=== PATIENT | male | born 1970 | race Caucasian/White ===

== ENCOUNTER 2017-06-22 01:44 | Observation (INO) | payer BC, SELFPAY ==
[2017-06-22] VITALS (15 sets, daily range): BP systolic 121–171; BP diastolic 74–96; PULSE 49–86; RESP 12–20; TEMP 36.4–36.9; O2SAT 94–98; BMI 30.7; BMI 31.8
--- NOTE | 2017-06-22 01:55 | RAD_ITS ---
STUDY: X-RAY CHEST REASON FOR EXAM: Male, 46 years old. Chest pain shortness of breath TECHNIQUE: Single AP portable view of the chest. COMPARISON: July 13, 2015 FINDINGS: The lungs are clear and expanded. There is no demonstrated pleural abnormality. Normal size heart. Normal mediastinum and sajan. Normal visualized pulmonary arteries. Normal visualized aortic arch and descending thoracic aorta. Normal visualized thoracic spine. Normal visualized ribs, clavicles, and shoulders. There is no demonstrated abnormality of the visualized soft tissue structures of the upper abdomen. RAD/Chest 1 View (Portable) IMPRESSION: Normal x-ray examination of the chest. Electronically Signed: Shayne Rolle MD at 2:39 EST Tel , Service support ,
--- NOTE | 2017-06-22 01:55 | EKG12_ITS ---
Test Reason : CP Blood Pressure : / mmHG Vent. Rate : 064 BPM Atrial Rate : 064 BPM P-R Int : 164 ms QRS Dur : 114 ms QT Int : 396 ms P-R-T Axes : 062 038 018 degrees QTc Int : 408 ms Normal sinus rhythm with sinus arrhythmia Normal ECG Confirmed by KERVIN HINDS, JEN ([id number]), makeup editor EFREM HA ([id number]) on 06/26/2017 2:29:16 PM Referred By: KELIN Confirmed By:JEN GALEANA MD
[2017-06-22 02:02] LABS: Absolute Lymphocyte Count 2.78 X10^3/ul (0.83-4.51); Basophil# 0.03 X10^3/uL; Basophil% 0.3 % (0-1); Eosinophil# 0.31 X10^3/uL; Eosinophils% 3.5 % (0-5); Hematocrit 50.6 % (40-54); Hemoglobin 17.8 g/dl (13.0-16.5); Lymphocyte # 2.78 X10^3/ul (4.0); Lymphocyte % 31.4 % (19-41); Mean Corp Hgb Conc 35.2 g/gl (32-36); Mean Corpuscular Hgb 30.5 pg (27.0-32.0); Mean Corpuscular Volume 86.6 fL (80-94); Mean Platelet Vol. 9.1 fl (6.2-12.0); Monocyte# 0.72 X10^3/uL; Monocyte% 8.1 % (0-10); Neutrophil # 4.98 X10^3/uL (2.7-7.7); Neutrophil % 56.2 % (47-70); POSITIVE COUNT NO; POSITIVE DIFFERENTIAL NO; POSITIVE MORPHOLOGY NO; Platelet Count 229 K/mm3 (150-450); RBC Distribution Width CV 12.5 % (11.6-14.6); RBC Distribution Width SD 39.5 fl (35.1-43.9); Red Blood Count 5.84 M/mm3 (4.6-6.2); White Blood Count 8.9 K/mm3 (4.4-11.0)
[2017-06-22] MEDS: 0.9% Normal Saline 1,000 ML 150 ML IV (02:02)
[2017-06-22] MEDS: Aspirin 81 MG TAB.CHEW 324 MG PO (02:02)
--- NOTE | 2017-06-22 02:20 | NURSING ---
DR. NEVILLE MADE AWARE THAT PATIENT'S CHEST PRESSURE LEVEL STAYED AT A 2/10 AFTER [address] NEVILLE ORDERED MORPHINE, BUT PATIENT REFUSED AT THIS TIME.
[2017-06-22 02:22] LABS: Anion Gap 7 (5-15); BUN 16 mg/dL (7-18); BUN/Creat Ratio 13.6 RATIO (10-20); Calcium,Total 8.5 mg/dL (8.5-10.1); Chloride 104 mmol/L (98-107); Creatinine, Serum 1.18 mg/dL (0.70-1.30); EST Glomerular Filtration Rate 71 mL/min (>60); Est Glom Filt Rate - Afr Amer 85 mL/min (>60); Estimated Creatinine Clearance 70.59 ml/min; Glucose 95 mg/dL (74-106); Potassium 3.8 mmol/L (3.5-5.1); Sodium Level 140 mmol/L (136-145)
--- NOTE | 2017-06-22 02:26 | ED.VISSUMM ---
- ER Visit Summary Date of Service: 06/22/17 Chief Complaint: Chest pain History of Present Illness: The patient is a [address] Lima. He reports that he has chest pain again 2-3 days ago. This is an intermittent pain that comes on when he exerts himself. He describes it as a tightness on the right side of his chest. 7 out of 10 at worst and 4-10 currently. States pain is relieved with rest, but this takes hours. He denies any associated nausea or vomiting. Does report the pain makes him short of breath and diaphoretic. It also makes him lightheaded at times. Finally he states that he is fatigued. Physical Examination: Vitals: Stable. Afebrile. General: Well-nourished and well-developed. Head: Normocephalic atraumatic. Neck: Supple, no lymphadenopathy. No JVD. Nontender. Cardiovascular: Regular rate and rhythm. No murmurs. Respiratory: No respiratory distress. Clear to auscultation bilaterally. Abdominal: Soft, nontender, nondistended, normal bowel sounds. No guarding, rebound, or peritoneal signs. Back: Nontender. Extremities: Nontender, no edema. Skin: Normal color, no rash. Neurologic: Alert and oriented ?3. Cranial nerves II through XII are intact. Normal strength and sensation. Psych: Normal affect. Test Results: EKG is sinus at [address] changes. Is unchanged from 2004. Troponin is negative. Chem-7 is normal. CBC is marked for hemoglobin of 17.8. Chest x-ray is normal. Emergency Department Course and Treatment: Patient was treated with aspirin. He was given sublingual nitro with no change in his pain. He refused morphine. Treatment Plan: The patient's history is concerning for a cardiac etiology. He was discussed with Dr. Jennings for. He will be admitted to the hospital for further relation and treatment. Disposition: Admitted in stable condition. Impression: 1. Chest pain. 2. REYNA score of 0. This note was generated with [employer] dictation software. It may contain incorrect words, spelling, and punctuation that were not noted in review of the chart prior to signing ED Disposition - Plan for ED Patient: Chief Complaint: Chest Pain Referrals: Sarah Lima DO [Primary Care Provider] -
--- NOTE | 2017-06-22 03:13 | PCM.HP.STD ---
History of Present Illness Date of Admission: 06/22/17 Chief Complaint: Chest pain. The patient is a 46 year old M with no significant past medical history presented to the emergency room because of chest pain. His symptoms started 2 days ago with intermittent chest pain, described as chest tightness, 4-7 out of 10 in severity, not radiating, comes on with activity, relieved by rest and associated with mild shortness of breath. He reported occasional sweating and dizziness. He denies syncope or presyncope. Denied palpitation, nausea or vomiting. He denied a history of premature CAD. In the emergency room, his vital signs were stable. His routine blood work was unremarkable. EKG revealed normal sinus rhythm, normal CO interval, normal QRS and no evidence of acute ischemic changes. Chest x-ray showed no acute findings. He is being admitted for chest pain for evaluation. Past Medical History Allergies No Known Allergies Allergy (Verified 06/22/17 01:47) Home Medications: Ambulatory Orders Medication Instructions Recorded Multivitamins,Therapeutic 1 tablet PO DAILY 06/22/17 [Multivitamin] Surgical History: noncontributory Psychiatric History: No pertinent psych hx Lives: Spouse/ Significant Other Smoking Status: Never smoker Alcohol: None Drugs: None - *Family History Maternal History Items: Heart Disease Paternal History Items: Hypertension Review of Systems Constitutional: Denies: Anorexia, Chills, Fever, Weakness Eyes: Denies: Blurred vision, Double vision, Drainage, Redness HEENT: Denies: Difficulty Hearing, Ear Pain, Eye Pain, Nasal Congestion, Sore Throat Cardiovascular: Reports: Chest Pain, Chest Tightness, Light Headedness. Denies: Heaviness, Orthopnea, Palpitations, Syncope Respiratory: Reports: Shortness of breath upon exertion. Denies: Cough, Pleuritic Pain, Sputum production, Wheezing Gastrointestinal: Denies: Abdominal Pain, Constipation, Diarrhea, Nausea, Vomiting Genitourinary: Denies: Dysuria, Frequency, Hematuria Musculoskeletal: Denies: Arm Pain, Back Pain, Foot Pain Skin: Denies: Dryness, Rash Neurological: Denies: Balance problems, Double vision, Change in Speech, Slurred speech, Confusion, Focal weakness, Headaches, Incoordination, Numbness Psychiatric: Denies: Anxiety, Depression Endocrine: Denies: Change in Body Habitus, Polydipsia VTE Information - Inpt Only VTE Present on Admission: No VTE Mechan Device Prophylaxis: None VTE Pharm Prophylaxis ordered?: No - Physical Exam General: Alert, Oriented x3, Cooperative, No apparent distress HEENT: Atraumatic, PERRLA, EOMI Oral: Moist Mucosa, No Gingival or Mucosal Lesions/ Ulcerations Neck: Supple, No JVD, Negative Carotid Bruits, Trachea Midline, Thyroid Normal Size and Texture Lungs: Clear to auscultation, Normal air movement, No rhonchi, No wheeze, No rales Cardiovascular: Regular rate, Regular Rhythm, Normal S1, Normal S2, No murmurs Abdomen: Bowel Sounds Present, Soft, Non Tender, Non-Distended, No Hepato-splenomegaly Extremities: No clubbing, No cyanosis, No edema Skin: No rashes, No breakdown Lymphatic: No Cervical, Supraclavicular, or Inguinal Adenopathy Neurological: Cranial nerves II-XII grossly intact, Motor Exam 5/5 strength throughout Psych/Mental Status: Normal Affect, Appropriate, Alert and oriented to time, place, person, mood and affect Vital Signs Temp Pulse Resp BP Pulse Ox 98.5 F 55 L 16 136/91 H 94 06/22/17 01:44 06/22/17 03:08 06/22/17 03:08 06/22/17 03:08 06/22/17 03:08 Oxygen Flow Rate (L/min) 2 Oxygen Delivery Method Nasal Cannula Laboratory Tests 06/22/17 06/22/17 Range/Units 01:55 01:55 WBC 8.9 (4.4-11.0) K/mm3 RBC 5.84 (4.6-6.2) M/mm3 Hgb 17.8 H (13.0-16.5) g/dl Hct 50.6 (40-54) % MCV 86.6 (80-94) fL MCH 30.5 (27.0-32.0) pg MCHC 35.2 (32-36) g/gl RDW 12.5 (11.6-14.6) % RDW Differential 39.5 (35.1-43.9) fl Plt Count 229 (150-450) K/mm3 MPV 9.1 (6.2-12.0) fl Immature Gran % (Auto) 0.500 (0.0-0.9) % Neut % (Auto) 56.2 (47-70) % Lymph % (Auto) 31.4 (19-41) % [place] % (Auto) 8.1 (0-10) % Eos % (Auto) 3.5 (0-5) % Baso % (Auto) 0.3 (0-1) % Absolute Neuts (auto) 5.0 (2.0-7.7) X10^3/uL Absolute Lymphs (auto) 2.78 (0.83-4.51) X10^3/ul Total Counted Not Reportable Sodium 140 (136-145) mmol/L Potassium 3.8 (3.5-5.1) mmol/L Chloride 104 (98-107) mmol/L Carbon Dioxide 29.0 (21.0-32.0) mmol/L Anion Gap 7 (5-15) BUN 16 (7-18) mg/dL Creatinine 1.18 (0.70-1.30) mg/dL Estim Creat Clear Calc 70.59 ml/min Est GFR (MDRD) Af Amer 85 (>60) mL/min Est GFR (MDRD) Non-Af 71 (>60) mL/min BUN/Creatinine Ratio 13.6 (10-20) RATIO Glucose 95 (74-106) mg/dL Calcium 8.5 (8.5-10.1) mg/dL Troponin I < 0.02 (<0.06) ng/mL Clinical Impression(s) from Imaging Studies Chest X-Ray 06/22/17 01:55 IMPRESSION: Normal x-ray examination of the chest. Electronically Signed: Shayne Rolle MD at 2:39 EST Tel , Service support , Assessment/Plan This is a 46 years old male patient presented to the emergency room because of chest pain and he is being admitted for evaluation. #1 chest pain: Seems to be atypical. Patient denied family history of CAD. His mother had a history of CAD but at older age. His REYNA score is 0. EKG reviewed, no acute ischemic changes. First troponin is negative. Chest x-ray showed no acute findings. Vital signs are stable. Plan: Admit to PCU for observation, cardiac monitoring, serial cardiac enzymes, repeat EKG tomorrow morning, fasting lipid profile, start baby aspirin, sublingual nitroglycerin as needed, IV fluids, IV antiemetics, stress test tomorrow morning if cardiac enzymes are negative. #2 DVT prophylaxis: Low risk patient, no prophylaxis indicated. This note was generated with [employer] software. It may contain incorrect words, spelling, and punctuation that were not noted in checking the note before signing. Code Visit OBSV E&M: 13778 Initial observation care L3
--- NOTE | 2017-06-22 03:20 | HP.PCM_ITS ---
History of Present Illness Date of Admission: 06/22/17 Chief Complaint: Chest pain. The patient is a 46 year old M with no significant past medical history presented to the emergency room because of chest pain. His symptoms started 2 days ago with intermittent chest pain, described as chest tightness, 4-7 out of 10 in severity, not radiating, comes on with activity, relieved by rest and associated with mild shortness of breath. He reported occasional sweating and dizziness. He denies syncope or presyncope. Denied palpitation, nausea or vomiting. He denied a history of premature CAD. In the emergency room, his vital signs were stable. His routine blood work was unremarkable. EKG revealed normal sinus rhythm, normal HI interval, normal QRS and no evidence of acute ischemic changes. Chest x-ray showed no acute findings. He is being admitted for chest pain for evaluation. Past Medical History Allergies No Known Allergies Allergy (Verified 06/22/17 01:47) Home Medications: Ambulatory Orders Medication Instructions Recorded Multivitamins,Therapeutic 1 tablet PO DAILY 06/22/17 [Multivitamin] Surgical History: noncontributory Psychiatric History: No pertinent psych hx Lives: Spouse/ Significant Other Smoking Status: Never smoker Alcohol: None Drugs: None - *Family History Maternal History Items: Heart Disease Paternal History Items: Hypertension Review of Systems Constitutional: Denies: Anorexia, Chills, Fever, Weakness Eyes: Denies: Blurred vision, Double vision, Drainage, Redness HEENT: Denies: Difficulty Hearing, Ear Pain, Eye Pain, Nasal Congestion, Sore Throat Cardiovascular: Reports: Chest Pain, Chest Tightness, Light Headedness. Denies : Heaviness, Orthopnea, Palpitations, Syncope Respiratory: Reports: Shortness of breath upon exertion. Denies: Cough, Pleuritic Pain, Sputum production, Wheezing Gastrointestinal: Denies: Abdominal Pain, Constipation, Diarrhea, Nausea, Vomiting Genitourinary: Denies: Dysuria, Frequency, Hematuria Musculoskeletal: Denies: Arm Pain, Back Pain, Foot Pain Skin: Denies: Dryness, Rash Neurological: Denies: Balance problems, Double vision, Change in Speech, Slurred speech, Confusion, Focal weakness, Headaches, Incoordination, Numbness Psychiatric: Denies: Anxiety, Depression Endocrine: Denies: Change in Body Habitus, Polydipsia VTE Information - Inpt Only VTE Present on Admission: No VTE Mechan Device Prophylaxis: None VTE Pharm Prophylaxis ordered?: No - Physical Exam General: Alert, Oriented x3, Cooperative, No apparent distress HEENT: Atraumatic, PERRLA, EOMI Oral: Moist Mucosa, No Gingival or Mucosal Lesions/ Ulcerations Neck: Supple, No JVD, Negative Carotid Bruits, Trachea Midline, Thyroid Normal Size and Texture Lungs: Clear to auscultation, Normal air movement, No rhonchi, No wheeze, No rales Cardiovascular: Regular rate, Regular Rhythm, Normal S1, Normal S2, No murmurs Abdomen: Bowel Sounds Present, Soft, Non Tender, Non-Distended, No Hepato- splenomegaly Extremities: No clubbing, No cyanosis, No edema Skin: No rashes, No breakdown Lymphatic: No Cervical, Supraclavicular, or Inguinal Adenopathy Neurological: Cranial nerves II-XII grossly intact, Motor Exam 5/5 strength throughout Psych/Mental Status: Normal Affect, Appropriate, Alert and oriented to time, place, person, mood and affect Vital Signs Temp Pulse Resp BP Pulse Ox 98.5 F 55 L 16 136/91 H 94 06/22/17 01:44 06/22/17 03:08 06/22/17 03:08 06/22/17 03:08 06/22/17 03:08 Oxygen Flow Rate (L/min) 2 Oxygen Delivery Method Nasal Cannula Laboratory Tests 3 06/22/17 06/22/17 Range/Units 01:55 01:55 WBC 8.9 (4.4-11.0) K/mm3 RBC 5.84 (4.6-6.2) M/mm3 Hgb 17.8 H (13.0-16.5) g/dl Hct 50.6 (40-54) % MCV 86.6 (80-94) fL MCH 30.5 (27.0-32.0) pg MCHC 35.2 (32-36) g/gl RDW 12.5 (11.6-14.6) % RDW Differential 39.5 (35.1-43.9) fl Plt Count 229 (150-450) K/mm3 MPV 9.1 (6.2-12.0) fl Immature Gran % (Auto) 0.500 (0.0-0.9) % Neut % (Auto) 56.2 (47-70) % Lymph % (Auto) 31.4 (19-41) % [place] % (Auto) 8.1 (0-10) % Eos % (Auto) 3.5 (0-5) % Baso % (Auto) 0.3 (0-1) % Absolute Neuts (auto) 5.0 (2.0-7.7) X10^3/uL Absolute Lymphs (auto) 2.78 (0.83-4.51) X10^3/ul Total Counted Not Reportable Sodium 140 (136-145) mmol/L Potassium 3.8 (3.5-5.1) mmol/L Chloride 104 (98-107) mmol/L Carbon Dioxide 29.0 (21.0-32.0) mmol/L Anion Gap 7 (5-15) BUN 16 (7-18) mg/dL Creatinine 1.18 (0.70-1.30) mg/dL Estim Creat Clear Calc 70.59 ml/min Est GFR (MDRD) Af Amer 85 (>60) mL/min Est GFR (MDRD) Non-Af 71 (>60) mL/min BUN/Creatinine Ratio 13.6 (10-20) RATIO Glucose 95 (74-106) mg/dL Calcium 8.5 (8.5-10.1) mg/dL Troponin I < 0.02 (<0.06) ng/mL Clinical Impression(s) from Imaging Studies Chest X-Ray 06/22/17 01:55 IMPRESSION: Normal x-ray examination of the chest. Electronically Signed: Shayne Rolle MD at 2:39 EST Tel , Service support , Assessment/Plan This is a 46 years old male patient presented to the emergency room because of chest pain and he is being admitted for evaluation. #1 chest pain: Seems to be atypical. Patient denied family history of CAD. His mother had a history of CAD but at older age. His REYNA score is 0. EKG reviewed, no acute ischemic changes. First troponin is negative. Chest x-ray showed no acute findings. Vital signs are stable. Plan: Admit to PCU for observation, cardiac monitoring, serial cardiac enzymes, repeat EKG tomorrow morning, fasting lipid profile, start baby aspirin, sublingual nitroglycerin as needed, IV fluids, IV antiemetics, stress test tomorrow morning if cardiac enzymes are negative. #2 DVT prophylaxis: Low risk patient, no prophylaxis indicated. This note was generated with [employer] software. It may contain incorrect words, spelling, and punctuation that were not noted in checking the note before signing. Code Visit OBSV E&M: 88694 Initial observation care L3
--- NOTE | 2017-06-22 04:00 | NURSING ---
ns infusing at 100ml/hr w/1l ns bag from ed.
--- NOTE | 2017-06-22 05:55 | EKG12_ITS ---
Test Reason : AM EKG Blood Pressure : / mmHG Vent. Rate : 058 BPM Atrial Rate : 058 BPM P-R Int : 156 ms QRS Dur : 116 ms QT Int : 426 ms P-R-T Axes : 058 011 001 degrees QTc Int : 418 ms Sinus bradycardia Otherwise normal ECG When compared with ECG of 22-JUN-2017 01:47, MANUAL COMPARISON REQUIRED, DATA IS UNCONFIRMED Confirmed by KERVIN HINDS, JEN ([id number]), city editor EFREM HA ([id number]) on 06/26/2017 3:27:02 PM Referred By: DR SALGUERO Confirmed By:JEN GALEANA MD
[2017-06-22 06:51] LABS: Prothrombin Time (Protime)PT. 13.5 SECONDS (11.7-14.9)
[2017-06-22 06:52] LABS: Partial Thromboplast Time 32.1 Seconds (24.1-36.2)
[2017-06-22 07:06] LABS: Cholesterol 195 mg/dL (200); High Density Lipoprotein 32 mg/dL; Triglycerides 266 mg/dL; Very Low Density Lipoprotein 53 mg/dL (5-40)
[2017-06-22] MEDS: 0.9% Normal Saline 1,000 ML 100 ML IV (09:25)
--- NOTE | 2017-06-22 12:09 | STRESSREP ---
Stress Test Report Exercise myocardial perfusion stress test. 46-year-old man with a history of chest pain. Stress protocol: Resting EKG demonstrates sinus bradycardia with a rate of 57 bpm. Resting blood pressure is 130/90 mmHg. The patient exercised according to regular Jean Paul protocol for total duration of 10 minutes and 30 seconds. Patient completed 1 minute and 30 seconds into stage IV of the Jean Paul protocol. The maximum heart rate attained was 150 bpm which was 86% of the maximum predicted heart rate. The maximum workload attained was 12.5 metabolic equivalents. At rest there were no ST or T-wave changes noted suggest ischemia peak exercise upsloping ST changes only were noted we did not meet the criteria for ischemia. No clinical angina was noted the test was terminated due to leg fatigue. Resting blood pressure was 130/90 with a peak blood pressure 190/90 mmHg. Rate pressure product was 25,200. Myocardial perfusion protocol. 11.6 mCi of technetium 99m sestamibi was injected at rest. The patient exercised according to regular Jean Paul protocol for 10 minutes. At peak exercise 34.1 mCi of technetium 99m sestamibi was injected. Stress images were obtained. Stress and rest images were reconstructed and compared in the short axis vertical long and horizontal long axis. Gated images were also obtained Perfusion SPECT analysis: Review of the stress images demonstrate normal uptake of tracer noted in all areas of the myocardium. The cardiac silhouette size is normal. The resting images demonstrate a similar patent. No reversibility is noted and no infarct is noted. Gated SPECT analysis: The gated ejection fraction is 67%. Conclusion: Normal exercise myocardial perfusion stress test at a high workload. Preserved ejection fraction.
[2017-06-22] MEDS: Lisinopril 5 MG Tablet PO (12:30)
--- NOTE | 2017-06-22 13:22 | PCM.DC ---
You will use the following diet at home:: Cardiac Your food should be the consistency of: Regular Your liquids should be the consistency of: Regular/Thin Discharge Activity: Return to Normal Activity Additional Instructions: Please have your blood pressure checked daily and record it, present the findings to your family medicine doctor at follow up. Allergies/Adverse Reactions: Allergies No Known Allergies Allergy (Verified 06/22/17 01:47) Medications to take at Discharge Aspirin [Aspirin, Baby] 81 mg PO DAILY@0800 tab.chew 06/22/17 Ibuprofen [Motrin] 400 mg PO TID PRN PRN tablet 06/22/17 Lisinopril [Zestril] 5 mg PO DAILY #30 tab 06/22/17 Multivitamins,Therapeutic [Multivitamin] 1 tablet PO DAILY 06/22/17 Pantoprazole Sodium [Protonix] 40 mg PO DAILY #30 tab 06/22/17 The following prescriptions were given: Lisinopril [Zestril] 5 mg PO DAILY #30 tab Pantoprazole Sodium [Protonix] 40 mg PO DAILY #30 tab Primary Care Physician: Sarah Lima DO [Primary Care Provider] - Please follow up with your Primary Care Physician in: 1-2 weeks Proposed Discharge Date: 06/22/17
--- NOTE | 2017-06-22 14:59 | DS.PCM_ITS ---
Discharge Date and Diagnosis Date of Admission: 06/22/17 Date of Discharge: 06/22/17 - Primary Discharge Diagnosis Chest pain - musculoskeletal HTN Hospital Course and Treatment Imaging Results: 06/22/17 05:55 Nuclear Stress Test - Chemical [NM] AM (NON MEDS) - Conclusion: Normal exercise myocardial perfusion stress test at a high workload. Preserved ejection fraction. RAD/Chest 1 View (Portable) IMPRESSION: Normal x-ray examination of the chest. Operations: None Procedures: Stress test Summary of Care Provided: Physical exam on day of discharge: General: Resting comfortably NAD Psych: A/Ox3 normal affect HEENT: PEARRLA AT NC Neck: Supple NT CV: RRR no m/t/r/g/h Resp: CTA Abd: [id number] Soft NT no guarding or rigidity Ext: DP2+= no edema Skin: W/D normal turgor Lymph/Heme: No active bleeding or adenopathy Neuro: CN2-12 intact Hospital course: The patient is a 46 year old M with no significant medical history who presented to the emergency room for chest pain that started 2 days prior, described as intermittent chest tightness 4-7 out of 10. No radiation. Occasional sweating and dizziness, worse with activity and relieved by rest. He is admitted for chest pain workup. His initial and follow-up EKGs were normal. He was maintained on telemetry with no acute abnormalities. Chest x- ray was normal. Troponins were negative ?3. The following morning he underwent stress test which was negative. He did have persistently elevated blood pressure. LDL was 110. This felt that his chest pain was musculoskeletal. He was placed on as needed ibuprofen along with Protonix. He was also started on low-dose lisinopril for his uncontrolled hypertension. He was discharged home in stable condition and advised to follow-up with his family medicine doctor in 1-2 weeks. This patient was seen by Pawel Cartagena PA-C under the supervision of Doctor Kavitha. [] Discharge Diet: Low fat/ Low Cholesterol, 4000 mg Sodium Diet Discharge Activity: Return to Normal Activity Home Medications: Medications to take at Discharge Aspirin [Aspirin, Baby] 81 mg PO DAILY@0800 tab.chew 06/22/17 Ibuprofen [Motrin] 400 mg PO TID PRN PRN tablet 06/22/17 Lisinopril [Zestril] 5 mg PO DAILY #30 tab 06/22/17 Multivitamins,Therapeutic [Multivitamin] 1 tablet PO DAILY 06/22/17 Pantoprazole Sodium [Protonix] 40 mg PO DAILY #30 tab 06/22/17 Following Prescrptions Were Given to Patient: Lisinopril [Zestril] 5 mg PO DAILY #30 tab Pantoprazole Sodium [Protonix] 40 mg PO DAILY #30 tab Primary Care Physician: Sarah Lima DO [Primary Care Provider] - Please follow up with your Primary Care Physician in: 1-2 weeks Disposition: Home Minutes spent on discharge:: 35 Patient Condition:: Stable Meaningful Use Info Meaningful Use Diagnoses (Choose all that apply): None applicable
== END 2017-06-22 13:23 | disposition home or self-care (01) ==
LOC: ED 02:48 → PCU 03:00
PROVIDERS: Admitting Provider Hospitalist; Emergency Provider Emergency Medicine; Family Provider Internal Medicine; PCP Internal Medicine; Visit Provider Internal Medicine
DX: R07.89 Other chest pain (principal); I10 Essential (primary) hypertension; R53.83 Other fatigue; R06.02 Shortness of breath
CPT/HCPCS: 36415; 71045; 78452; 80048; 80061; 84484; 85025; 85610; 85730; 93005; 93017; 96360; 96361; 99218; 99285; A9500; J7030; A4216; G0378

== ENCOUNTER → 2022-11-19 | Outpatient (CLI) | payer BC, SELFPAY ==
--- NOTE | 2022-11-19 08:04 | MRI_ITS ---
EXAM: MR ANGIOGRAPHY HEAD WITHOUT INTRAVENOUS CONTRAST CLINICAL INDICATION: Headache, sudden, severe, associated w/ sexual activity TECHNIQUE: Routine [place] of [place]/brain 3D time of flight MR angiogram protocol was performed without intravenous contrast. COMPARISON: No relevant prior studies available. FINDINGS: RIGHT INTERNAL CAROTID ARTERY: No acute findings. No significant stenosis at the intracranial/visualized segments. No aneurysm. RIGHT ANTERIOR CEREBRAL ARTERY: Unremarkable. No significant stenosis at the visualized segments. Anterior communicating artery is present. No aneurysm. RIGHT MIDDLE CEREBRAL ARTERY: Unremarkable. No significant stenosis at the visualized segments. No aneurysm. RIGHT POSTERIOR CEREBRAL ARTERY: Unremarkable. No significant stenosis at the visualized segments. No aneurysm. RIGHT VERTEBRAL ARTERY: Unremarkable as visualized. No significant stenosis at the intradural/visualized segments. No aneurysm. LEFT INTERNAL CAROTID ARTERY: No acute findings. No significant stenosis at the intracranial/visualized segments. No aneurysm. LEFT ANTERIOR CEREBRAL ARTERY: Unremarkable. No significant stenosis at the visualized segments. Anterior communicating artery is present. No aneurysm. LEFT MIDDLE CEREBRAL ARTERY: Unremarkable. No significant stenosis at the visualized segments. No aneurysm. LEFT POSTERIOR CEREBRAL ARTERY: Unremarkable. No significant stenosis at the visualized segments. No aneurysm. LEFT VERTEBRAL ARTERY: Unremarkable as visualized. No significant stenosis at the intradural/visualized segments. No aneurysm. BASILAR ARTERY: Unremarkable. No significant stenosis. No aneurysm. OTHER VASCULATURE: No vascular malformation. OTHER FINDINGS: There are no acute findings of the [place] of [place] without a demonstrated aneurysm or hemodynamically significant stenosis. ALL ABOVE CRITERIA BY NASCET. Post-processing of the angiographic images was performed, with axial imaging and 3D reconstruction. MIPS images were obtained. MRI/MRA Head ONLY without Contrast IMPRESSION: There are no acute findings of the [place] of [place] without a demonstrated aneurysm or hemodynamically significant stenosis. ALL ABOVE CRITERIA BY NASCET. Electronically Signed: Clement Rodriguez MD at 16:32 EDT ,
== END | disposition home or self-care (01) ==
PROVIDERS: PCP Internal Medicine; Referring Provider Internal Medicine; Visit Provider Internal Medicine
DX: G44.82 Headache associated with sexual activity (principal)
CPT/HCPCS: 70544

== ENCOUNTER 2023-07-14 14:44 | Emergency (ER) | payer BC, SELFPAY ==
[2023-07-14 14:44] VITALS: BP 183/106; PULSE 74; RESP 16; TEMP 36.6; O2SAT 97; BMI 31.5
--- NOTE | 2023-07-14 15:31 | EDS_ITS ---
HPI History of Present Illness Chief Complaint: Other, Pain/Inj Detail of Chief Complaint: Left neck discomfort Informant: patient Onset/Context/Timing Onset: Today and Yesterday Context: Gradual Onset Timing: Intermittent Current Severity: Mild Maximum Severity: Mild Narrative Narrative: 52-year-old male history of hypertension uses chewing tobacco. States yesterday and today has felt some discomfort left anterior lateral neck. No fall injury or trauma. No prior neck surgery. No fever or sore throat. No weight change. No prior history. He was concerned that he may have a blocked artery or vein. He denies any neurological symptoms. Or any other symptoms. No weight change. No trouble swallowing or breathing. Prior similar symptoms: No Recent Illness/Hospitalization: No PFSH PFSH Home Medications aspirin 81 mg chewable tablet 81 mg PO DAILY@0800 06/22/17 [Rx Last Taken Unknown] ibuprofen 400 mg tablet 400 mg PO TID PRN PRN Severe Pain (6-10/10) 06/22/17 [Rx Last Taken Unknown] lisinopril 5 mg tablet 5 mg PO DAILY #30 tabs 06/22/17 [Rx Last Taken Unknown] multivitamin with folic acid 400 mcg tablet (Thera) 1 tab PO DAILY 06/22/17 [ History Last Taken 06/21/17] pantoprazole 40 mg tablet,delayed release 40 mg PO DAILY #30 tabs 06/22/17 [Rx Last Taken Unknown] Allergy/AdvReac Type Severity Reaction Status Date / Time No Known Allergies Allergy Verified 07/14/23 14:46 Social History Smoking Status: Never smoker ROS ROS ED ROS Narrative Denies recent illness. Review of Systems ROS Unobtainable: Denies due to encephalopathy Constitutional Constitutional ED: Denies chills or fever(s) Eyes Eyes: Denies blurry vision ENT ENT ED: Denies ear pain Cardiovascular Cardiovascular: Denies chest pain Respiratory/Chest Respiratory/Chest: Denies cough or dyspnea Gastrointestinal Gastrointestinal: Denies abdominal pain Genitourinary Genitourinary ED: Denies dysuria or hematuria Musculoskeletal Musculoskeletal: Reports neck pain; Denies arthralgias, back pain or myalgias Integumentary Denies abscess or Abrasions Neurologic Neurologic: Denies headache(s) Psychiatric Psychiatric: Denies anxiety, depression, suicidal ideation or suicidal thoughts Endocrine Endocrinology: Denies cold intolerance, heat intolerance or polydipsia Hematologic/Lymphatic Hematologic/Lymphatic: Reports none Allergic/Immunologic Allergic/Immunologic ED: Denies mouth swelling, tongue swelling or urticaria EXAM Physical Exam Narrative Exam Narrative: Well-appearing 52-year-old male. Vital signs stable afebrile. H EENT exam TMs normal bilaterally. Posterior pharynx normal. No erythema or exudate. No trouble swallowing or breathing. No stridor or drooling. Neck trachea midline. I do not feel any anterior or posterior lymphadenopathy there is no meningismus. No for any obvious mass. There is no swelling or discoloration. Trachea midline nontender. Lungs clear equal symmetrical. Heart regular rhythm no murmur rate about 75. Chest wall and ribs nontender. Abdomen soft nontender. Back unremarkable. Moving all 4 extremities. Nontender no edema. Normal range of motion. Normal vice president regulatory strength. Normal dorsi plantarflexion. Neurologic exam normal. NIH 0. Const Vital Signs: 07/14/23 14:44 Temperature 97.8 F Temperature Source Temporal Pulse Rate 74 Respiratory Rate 16 Blood Pressure 183/106 H Blood Pressure Mean 131 Pulse Ox 97 Oxygen Delivery Method Room Air Positive well nourished and well developed; Negative for cachectic, contractures or unkempt General Appearance ED: well developed and NAD; Negative for unkempt, cachectic, contractures, cyanotic, diaphoretic or pallor Nutritional Appearance: Negative for cachectic HEENT Reports moist mucous membranes; Denies dry mucous membranes Negative for trauma or tenderness Mouth ED: No dry mucous membranes Mouth: No dry mucous membranes Eyes PERRL and EOMs intact bilaterally General Eye ED: Negative for pale conjunctiva, scleral icterus or other Neck no lymphadenopathy, supple and no JVD General: Negative for tenderness Lymph Lymphatic: Negative for other Chest Wall inspection of chest normal and palpation of chest normal Chest: Negative for other Resp normal respiratory effort and clear to auscultation bilaterally Effort and Inspection: Negative for retractions Auscultation: Negative for rales, rhonchi or wheezes Cardio regular rate, regular rhythm, S1 normal heart sound, S2 normal heart sound and no murmurs Palpation: Negative for palpable S3 or palpable S4 Rate: Negative for bradycardia or tachycardic Rhythm: Negative for abnormal rhythm GI normal to inspection, nondistended, normoactive bowel sounds, non-tender and non-distended Inspection: Negative for abdominal distention Auscultation: normoactive bowel sounds Palpation: soft; Negative for tender or guarding Back/Spine no CVA tenderness General Back: Negative for CVA tenderness Cervical Spine: Negative for cervical spine tenderness Thoracic Spine / Upper Back: Negative for thoracic spinal tenderness or paraspinal muscle tenderness Lumbar Spine / Lower Back: Negative for lumbar spinal tenderness Extremity normal to inspection General Extremety ED: Negative for edema or tenderness General Extremity: Negative for edema Neuro oriented x3 and CN's II-XII intact bilaterally Sensorium / Orientation: alert and orientation impaired; Negative for lethargic or stuporous Motor Exam: strength 5/5 throughout; Negative for general weakness or strength abnormal Psych mental status grossly normal Appearance: Negative for unkempt Attitude: No agitated Mood & Affect: Negative for depressed, anxious or tearful Skin no rashes or lesions noted, no wounds and skin turgor normal General Skin Exam: Negative for jaundice or pallor Lesions: No lesion noted Rashes: No rashes noted Trauma: Negative for abrasion Wounds: Negative for wounds noted MDM MDM MDM Narrative Medical decision making narrative: 52-year-old male with left-sided anterior neck discomfort. Exam is benign. I do not feel a mass or swollen lymph node. His exam is otherwise normal. I discussed with both he and his at bedside says that he would get CT soft tissue neck prior to draw labs because her giving contrast wait for those. And get the CAT scan as long as his kidney function was fine which is expected to be and await the CT results. That would probably take 2 and half to 3 and half hours. He is comfortable with following up with primary care physician if this is not improving to have that done as an outpatient. I did encourage him to stop using smokeless tobacco. Discharge Plan Triage Chief Complaint: Other, Pain/Inj Other Complaint: Dizziness ED Provider: Jackson Ibarra Dx/Rx/DC Orders Clinical Impression: Neck discomfort, History of hypertension Instructions: ED Neck Pain Prescriptions: No Action multivitamin with folic acid [Thera] 1 TABLET tablet 1 tab PO DAILY pantoprazole 40 MG tablet 40 mg PO DAILY Qty: 30 0RF ibuprofen 400 MG tablet 400 mg PO TID PRN PRN (Reason: Severe Pain (6-10/10)) 0RF aspirin 81 MG tablet,chewable 81 mg PO DAILY@0800 0RF lisinopril 5 MG tablet 5 mg PO DAILY Qty: 30 0RF Primary Care Provider: Sarah Lima Referrals: Sarah Lima, [Primary Care Provider] - 1 Week if not improving Activity Restrictions/Additional Instructions: Tylenol and or Motrin for discomfort. Call and follow-up your primary care physician in 1 week if this is not improving. If you think you are feeling a lump they can get a CAT scan of the soft tissue of your neck for evaluation. Disposition Disposition: Home, Self Care
[2023-07-14 15:41] VITALS: BP 169/87; PULSE 75; RESP 16; TEMP 36.8; O2SAT 99
== END 2023-07-14 15:45 | disposition home or self-care (01) ==
LOC: ED 15:37
PROVIDERS: Emergency Provider Emergency Medicine; PCP Internal Medicine; Visit Provider Emergency Medicine
DX: M54.2 Cervicalgia (principal); R42 Dizziness and giddiness; I10 Essential (primary) hypertension; F17.220 Nicotine dependence, chewing tobacco, uncomplicated
CPT/HCPCS: 99282